=== PATIENT | female | born 1940 | race Caucasian/White ===

== ENCOUNTER 2021-04-25 07:09 | Outpatient (REF) | payer MEDICARE, SELFPAY ==
[2021-04-25 07:39] LABS: Hemoglobin 9.8 g/dl (12.0-16.0); Mean Corpuscular HGB Conc 32.7 g/dl (31.0-35.0); Mean Corpuscular Hemoglobin 29.8 pg (27.0-33.0); Mean Corpuscular Volume 91.2 fL (80-98); Mean Platelet Volume 9.9 fL (9.4-12.3); Platelet Count 468 X10*3/uL (160-400); Red Blood Count 3.29 X10*6/uL (4.20-5.50); Red Cell Distribution Width 13.2 % (11.0-16.0); White Blood Count 4.9 X10*3/uL (4.8-10.8)
[2021-04-25 08:05] LABS: Alanine Aminotransferase 9 U/L (0-31); Albumin Level 3.2 g/dL (3.5-5.0); Alkaline Phosphatase 90 U/L (39-117); Anion Gap 15 (12-20); Aspartate Amino Transferase 11 U/L (5-31); Bilirubin Total 0.5 mg/dL (0.0-1.0); Blood Urea Nitrogen 19 mg/dL (9-16); Carbon Dioxide 23 mmol/L (22-29); Chloride 107 mmol/L (96-108); Estimated Glomerular Filt Rate > 60; Glucose Random 102 mg/dL (60-115); Potassium 3.9 mmol/L (3.3-5.1); Sodium 141 mmol/L (135-145); Total Protein 5.5 g/dL (6.5-8.0)
== END 2021-04-25 07:10 | disposition home or self-care (01) ==
LOC: HO.MMNH1L 07:09
PROVIDERS: Visit Provider Family Medicine
DX: I69.354 Hemiplegia and hemiparesis following cerebral infarction affecting left non-dominant side (principal); I25.10 Atherosclerotic heart disease of native coronary artery without angina pectoris
CPT/HCPCS: 36415; 80053; 85027

== ENCOUNTER 2021-05-01 | Outpatient (REF) | payer MEDICARE, SELFPAY ==
[2021-05-01 07:33] LABS: Hematocrit 29.9 % (37-47); Hemoglobin 9.4 g/dl (12.0-16.0); Mean Corpuscular HGB Conc 31.4 g/dl (31.0-35.0); Mean Corpuscular Hemoglobin 29.3 pg (27.0-33.0); Mean Corpuscular Volume 93.1 fL (80-98); Mean Platelet Volume 10.1 fL (9.4-12.3); Platelet Count 399 X10*3/uL (160-400); Red Blood Count 3.21 X10*6/uL (4.20-5.50); Red Cell Distribution Width 13.9 % (11.0-16.0); White Blood Count 4.9 X10*3/uL (4.8-10.8)
[2021-05-01 07:54] LABS: Alanine Aminotransferase 7 U/L (0-31); Alkaline Phosphatase 87 U/L (39-117); Anion Gap 12 (12-20); Aspartate Amino Transferase 10 U/L (5-31); Bilirubin Total 0.3 mg/dL (0.0-1.0); Blood Urea Nitrogen 14 mg/dL (9-16); Calcium 8.5 mg/dL (8.4-10.2); Carbon Dioxide 24 mmol/L (22-29); Chloride 109 mmol/L (96-108); Estimated Glomerular Filt Rate > 60; Glucose Random 72 mg/dL (60-115); Potassium 4.4 mmol/L (3.3-5.1); Sodium 141 mmol/L (135-145); Total Protein 5.1 g/dL (6.5-8.0)
== END 2021-05-01 00:01 | disposition home or self-care (01) ==
LOC: HO.MMNH1L
PROVIDERS: Visit Provider Family Medicine
DX: I69.354 Hemiplegia and hemiparesis following cerebral infarction affecting left non-dominant side (principal); I25.10 Atherosclerotic heart disease of native coronary artery without angina pectoris
CPT/HCPCS: 36415; 80053; 85027

== ENCOUNTER 2021-05-08 00:51 | Outpatient (REF) | payer MEDICARE, SELFPAY ==
[2021-05-08 06:13] LABS: Hematocrit 30.3 % (37-47); Hemoglobin 9.8 g/dl (12.0-16.0); Mean Corpuscular HGB Conc 32.3 g/dl (31.0-35.0); Mean Corpuscular Hemoglobin 29.8 pg (27.0-33.0); Mean Corpuscular Volume 92.1 fL (80-98); Mean Platelet Volume 10.4 fL (9.4-12.3); Platelet Count 341 X10*3/uL (160-400); Red Blood Count 3.29 X10*6/uL (4.20-5.50); Red Cell Distribution Width 14.7 % (11.0-16.0); White Blood Count 4.4 X10*3/uL (4.8-10.8)
[2021-05-08 06:31] LABS: Alanine Aminotransferase 7 U/L (0-31); Albumin Level 3.3 g/dL (3.5-5.0); Alkaline Phosphatase 80 U/L (39-117); Anion Gap 11 (12-20); Aspartate Amino Transferase 11 U/L (5-31); Bilirubin Total 0.8 mg/dL (0.0-1.0); Blood Urea Nitrogen 14 mg/dL (9-16); Calcium 9.1 mg/dL (8.4-10.2); Carbon Dioxide 28 mmol/L (22-29); Chloride 105 mmol/L (96-108); Estimated Glomerular Filt Rate > 60; Glucose Random 82 mg/dL (60-115); Potassium 4.2 mmol/L (3.3-5.1); Sodium 140 mmol/L (135-145); Total Protein 5.5 g/dL (6.5-8.0)
== END 2021-05-08 00:52 | disposition home or self-care (01) ==
LOC: HO.MMNH1L 00:51
PROVIDERS: Visit Provider Family Medicine
DX: I69.354 Hemiplegia and hemiparesis following cerebral infarction affecting left non-dominant side (principal); I25.10 Atherosclerotic heart disease of native coronary artery without angina pectoris
CPT/HCPCS: 36415; 80053; 85027

== ENCOUNTER 2021-05-15 08:07 | Outpatient (REF) | payer MEDICARE, SELFPAY | END 2021-05-15 08:08 | disposition home or self-care (01) | LOC: HO.MMNH1L 08:07 | PROVIDERS: Visit Provider Family Medicine | DX: Z13.89 Encounter for screening for other disorder (principal) ==

== ENCOUNTER 2021-08-03 16:38 | Outpatient (REF) | payer MEDICARE, SELFPAY ==
[2021-08-03 16:52] LABS: Blood Urea Nitrogen 18 mg/dL (9-16); Estimated Glomerular Filt Rate > 60; Potassium 4.7 mmol/L (3.3-5.1)
== END 2021-08-03 16:39 | disposition home or self-care (01) ==
LOC: HO.HVNA 16:38
PROVIDERS: Visit Provider Internal Medicine
DX: N18.30 Chronic kidney disease, stage 3 unspecified (principal)
CPT/HCPCS: 36415; 82565; 84132; 84520

== ENCOUNTER 2025-04-30 12:23 | Outpatient (AMB) | payer MEDICARE, SELFPAY ==
--- NOTE | 2025-04-30 12:24 | A.OFFVIS_ITS ---
Vital Signs 04/30/25 12:31 Height 5 ft 2 in Weight 105 lb BMI 19.2 BP 156/66 H Blood Pressure Location Rt brachial Position Sitting Respiration 16 Pulse 53 Pulse Source Pulse Oximeter Pulse Oximetry (%) 90 L Oxygen Delivery Method Room Air Intake Visit Reasons: Spondylosis of Lumbrosacral Spine Clinical Laboratory Aide Required: No Accompanied by: Sister Allergies No Known Allergies (No Known Allergies*) Allergy (Verified 04/30/25 12:32) HPI HPI Spondylosis of Lumbrosacral Spine: Details: History of Present Illness The patient is an 84-year-old female presenting with chronic pain. She has a history of spondylosis with radiculopathy, which causes pain radiating down her left leg. The pain has been persistent and is described as nerve pain in the back, with episodes of losing balance. The patient experienced a stroke, which has contributed to her neuropathic pain. She reports that the pain affects her lower back and hip, and she has difficulty with balance and strength. Previous interventions included an injection in the left hip, which provided only three days of relief. The patient has been on various pain medications, including Tylenol, oxycodone, and gabapentin. She reports that Tylenol and oxycodone are not providing adequate relief, and gabapentin was previously discontinued without clear reason. She is currently residing in an assisted living facility and has a sister involved in her care. Pain Description - Pain onset: Chronic, persistent - Quality: Described as nerve pain - Location: Lower back, left leg, and hip - Radiation: Down the left leg - Exacerbating factors: Balance issues, weakness - Relieving factors: Previous hip injection provided temporary relief Physical Exam - Appears afebrile. - Alert and oriented. - Mood and affect appropriate. - Sitting in wheelchair. Pain Management - Affect: Pain impacts balance and strength, causing fear of falling - Analgesia: Current medications include Tylenol, oxycodone, and gabapentin; inadequate relief reported - Adverse Effects: No specific adverse effects reported - Activities of Daily Living: Pain affects balance and strength, impacting daily activities - Aberrant Drug Related Behaviors: None reported [facility] Medical History (Updated 05/04/25 @ 12:04 by Alan Lamar MD) Osteoporosis Major depression, recurrent Hypertension Hyperlipidemia T12 compression fracture COPD (chronic obstructive pulmonary disease) Bilateral carotid artery stenosis Atrial fibrillation Physical Exam Vital Signs: Last Vital Signs Pulse 53 04/30/25 12:31 Resp 16 04/30/25 12:31 BP 156/66 H 04/30/25 12:31 Pulse Ox 90 L 04/30/25 12:31 Oxygen Delivery Method Room Air 04/30/25 12:31 BMI result Body Mass Index 19.2 Assessment & Plan Assessment & Plan (1) 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 - Schedule a follow-up phone consultation in two weeks to assess response to gabapentin. - Consider adjusting gabapentin dosage based on patient's response and side effects. - Advise patient to use plain Tylenol instead of Tylenol PM initially to avoid excessive sedation. Patient was informed and verbally consented to the use of an ambient scribe for clinic note documentation during this visit. Discussion Notes I discussed with the patient the plan to restart gabapentin at 300 mg at bedtime to manage her neuropathic pain. We talked about the importance of monitoring for any side effects and adjusting the dosage as needed. I advised her to use plain Tylenol instead of Tylenol PM initially to avoid excessive sedation. A follow-up phone consultation is scheduled in two weeks to assess her response to the medication. Patient Instructions - Take gabapentin 300 mg at bedtime. - Use plain Tylenol instead of Tylenol PM initially. - Monitor for any side effects and report them during the follow-up call. - Attend the follow-up phone consultation in two weeks. 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
--- OUTSIDE RECORDS SUMMARY | 2025-04-30 12:30 | XMS_ITS | Encounter Summary ---
Author Organization [facility] Address [address] [place] [address] Phone Care Team Providers Care Slasher Operator Name Role Phone Razia Maharaj MD Primary Care Provider [phone] Reason for Visit * Reason Comments Med Refill Encounter Details Date Type Department Care Team (Late st Contact Info) Description 05/13/2023 Refill [facility] [address] [facility] [place] [id number] Vilma Mansfield MD Social History Tobacco Use Types Packs/Day Years Used Date Smoking Tobacco: Never Assessed Alcohol Use Standard Drinks/Week Comments Never 0 (1 standard drink = 0.6 oz pur e alcohol) Comments Unknown Sex and Gender Information Value Date Recorded Sex Assigned at Not on file Legal Sex Female 5:09 PM EST Gender Identity Not on file Sexual Orientation Not on file documented as of this encounter Plan of Treatment Not on file documented as of this encounter Visit Diagnoses Not on filedocumented in this encounter Care Teams Slasher Operator Relationship Specialty Start Date End Date Razia Maharaj MD [address] [place] [address] PCP - General Physical Medicine and Rehabilitation 04/03/21 documented as of this encounter
[2025-04-30 12:31] VITALS: BP 156/66; PULSE 53; RESP 16; O2SAT 90; BMI 19.2
--- OUTSIDE RECORDS SUMMARY | 2025-04-30 12:31 | XMS_ITS ---
Author Organization [facility] Care Team Providers Care Counter Hand Name Role Phone Angie Winters Unavailable Unavailable Andrey Estevez Unavailable Unavailable Joann Husain Unavailable Unavailable Salo Fields Unavailable Unavailable Allergies and adverse reactions No Known Allergies Care Team Name Role Address Phone Organization Dates Andrey Estevez PCP [address] [facility] [address], [place], [address], [facility] (Office): [facility] 07/05/2022 - 07/27/2022 Angie Winters [address], [address], [facility] (Office): [facility] 07/05/2022 - 07/27/2022 Joann Husain [address], [address], [facility] (Office): [facility] 07/05/2022 - 07/27/2022 Salo Fields [address] [address], [facility] (Office): [facility] 07/05/2022 - 07/27/2022 Immunizations Immunization Status Vaccine Details Vaccine Code CodeSystem Zane e Notes SARS-COV-2 (COVID-19) completed SARS-COV-2 (COVID-19) vaccine, mRNA, spike protein, LNP, preservative free, 30 mcg/0.3mL dose Mfg: [employer] Step 2 of Multi-step with next step required 208 CVX created date: 06/30/2022 administered date: 11/15/2020 SARS-COV-2 (COVID-19) completed SARS-COV-2 (COVID-19) vaccine, mRNA, spike protein, LNP, preservative free, 30 mcg/0.3mL dose Mfg: [employer] Step 1 of Multi-step with next step required 208 CVX created date: 06/30/2022 administered date: 10/25/2020 SARS-COV-2 (COVID-19 BOOSTER) completed SARS-COV-2 (COVID-19) vaccine, mRNA, spike protein, LNP, preservative free, 30 mcg/0.3mL dose Mfg: [employer] 208 CVX created date: 06/30/2022 administered date: 05/09/2022 SARS-COV-2 (COVID-19 BOOSTER) completed SARS-COV-2 (COVID-19) vaccine, mRNA, spike protein, LNP, preservative free, 30 mcg/0.3mL dose Mfg: [employer] 208 CVX created date: 06/30/2022 administered date: 08/30/2021 Mental Status Section Date Assessment Total Score Description 07/11/2022 BIMS 14 cognitively int act CAM 0 No delirium ind icated PHQ-9 06 mild depression Problems Problem # Description Date of onset Resolved Date Code CodeSystem Concern Status 1 CEREBRAL INFARCTION, UNSPECIFIED [address] active 2 CHRONIC OBSTRUCTIVE PULMONARY DISEASE, UNSPECIFIED [address] active 3 DYSPHAGIA FOLLOWING CEREBRAL INFARCTION [address] active 4 HISTORY OF FALLING [address] active 5 MUSCLE WEAKNESS (GENERALIZED) [address] active 6 RESPIRATORY FAILURE, UNSPECIFIED WITH HYPOXIA [address] active 7 UNSPECIFIED BACTERIAL PNEUMONIA [address] active 8 CARDIOMYOPATHY, UNSPECIFIED [address] active 9 DIFFICULTY IN WALKING, NOT ELSEWHERE CLASSIFIED [address] active 10 ESSENTIAL (PRIMARY) HYPERTENSION [address] active 11 FRACTURE OF ONE RIB, LEFT SIDE, SUBSEQUENT ENCOUNTER FOR FRACTURE WITH ROUTINE HEALING [address] active 12 HEMIPLEGIA AND HEMIPARESIS FOLLOWING CEREBRAL INFARCTION AFFECTING LEFT NON-DOMINANT SIDE [address] active 13 HYPERLIPIDEMIA, UNSPECIFIED [address] active 14 MAJOR DEPRESSIVE DISORDER, SINGLE EPISODE, UNSPECIFIED [address] active 15 OCCLUSION AND STENOSIS OF BILATERAL CAROTID ARTERIES [address] active 16 OTHER LACK OF COORDINATION [address] active 17 PAIN IN LEFT SHOULDER [address] active 18 PERSONAL HISTORY OF (HEALED) OTHER PATHOLOGICAL FRACTURE [address] active 19 REPEATED FALLS [address] active 20 UNSPECIFIED ATRIAL FIBRILLATION [address] active 21 UNSPECIFIED FRACTURE OF SHAFT OF HUMERUS, LEFT ARM, SUBSEQUENT ENCOUNTER FOR FRACTURE WITH ROUTINE HEALING [address] active 22 UNSTEADINESS ON FEET [address] active Reason for Referral No Reasons for Referral Entered Social History Social History Observation Description Start Date End Date Code Code System Current Smoking Status Tobacco smoking consumption unknown 955044439 SNOMED CT Sex Assigned At Female 1940 [address]-2 [facility] Gender Identity Vital Signs Code Code System Vitals Name Values and Units Timing Information 21689-6 [facility] Pain Level Value=0.0 07/27/2022 9279-1 [facility] Respiratory Rate Value=20.0 Units=/m in 07/27/2022 8462-4 [facility] Blood Pressure-Diastolic Value=69 Un its=mmHg 07/27/2022 8480-6 [facility] Blood Pressure-Systolic Ncbjp=180 Un its=mmHg 07/27/2022 8310-5 [facility] Body Temperature Value=96.9 Units= F 07/27/2022 8867-4 [facility] Heart rate Value=52.0 Units=/min 04/2022 82422-4 [facility] O2 % BldC Oximetry Value=97.0 Units= % 07/27/2022 33983-4 [facility] Weight Qpmbc=891.8 Units=Lbs 8302-2 [facility] Height Value=55.0 Units=Inches 06/28/2022
--- OUTSIDE RECORDS SUMMARY | 2025-04-30 12:31 | XMS_ITS | Patient Health Record ---
Author Organization [facility] mckenna [place] Address [address] [place] [address] Care Team Providers Care Automatic Glove Former Name Role Phone Olivia Chase MD, May Primary Care Provider Taras Donohue Unavailable [phone] Allergies No Known Allergies Reason For Referral No Information Medications Medication SIG (Take, Route, Frequency, Duration) Notes Start Date End Date Status Multivitamin Active Metoprolol Succinate ER 100 MG 1 tablet Orally Once a day Active Melatonin Active Calcium 600 Active AFO-Hinged Spring hinge Wear Da tadeo; Duration: 365 days 02/05/2024 Active buPROPion HCl ER (XL) 150 MG 1 tablet in the morning Orally Once a day Active Aspir-81 Active Alendronate Sodium 70 MG 1 tablet 30 min utes before the first food, beverage or medicine of the day with plain water Orally Active Albuterol Active QUEtiapine Fumarate 25 MG 1 tablet at be dtime Orally Once a day Active Acetaminophen Active Pravastatin Sodium 40 MG 1 tablet Orally Once a day Active Pantoprazole Sodium 40 MG 1 tablet Orall y Once a day Active NIFEdipine ER 60 MG 1 tablet on an empty stomach Orally Once a day Active Social History Tobacco Use: Social History Observation Description Date Details (start date - stop date) Former Smoker NA - NA Tobacco Use/Smoking Question Answer Notes Are you a: former smoker Additional Findings: Tobacco Non-User Current no n-smoker Alcohol Screen Question Answer Notes Did you have a drink contain ing alcohol in the past year? Yes How often did you have a dri nk containing alcohol in the past year? Monthly or less (1 point) Points 1 Interpretation Negative Tobacco use other than smoking: Question Answer Notes Are you an other tobacco user? No Problems Problem Type SNOMED Code ICD Code Onset Dates Problem Status W/U Status Risk Notes Problem Unsteady gait (31307831) Unsteady gait (R26.81) Active confirmed Problem Left foot drop (282191212660330) Left foot drop (M21.372) Active confirmed Problem Cerebrovascular accident (145328888) Cerebrovascular accident (CVA), unspecified mechanism (I63.9) Active confirmed Plan Of Treatment No Information Insurance Providers Payer Name Payer Address Payer Phone Subscriber Number Group Number Insured Name Patient Relationship to Insured Coverage Start Date Coverage End Date [employer] [place] [employer]age [facility] [address] [place] [address] [id number] Pilar Chandler Self - patient is the insured Medical (General) History Medical History History ICD Code Anxiety Back,Hip,and Knee pain Broken bones Cataracts High blood pressure Osteoporosis Paralysis Stroke Measles Chicken pox Surgical History Surgery Date(Month/Year) hysterectomy 1966 carpal tunnel surgery 1984 bunionectomy 1974
--- OUTSIDE RECORDS SUMMARY | 2025-04-30 12:31 | XMS_ITS ---
Author Organization [facility] Care Team Providers Care Intelligence Chief Name Role Phone Flakito Dailey Unavailable Unavailable Eleanor Umana Unavailable Unavailable Allergies and adverse reactions No Known Allergies Care Team Name Role Address Phone Organization Dates Flakito Dailey PCP [address] [facility] [address], [place], [address], [facility] (Office): : [facility] 04/22/2021 - 05/10/2021 Eleanor Umana [address], [address], [facility] (Office): [facility] 04/22/2021 - 05/10/2021 Immunizations Immunization Status Vaccine Details Vaccine Code CodeSystem Date Notes Influenza completed Influenza, split virus, trivalent, injectable, contains preservative 141 CVX created date: 04/22/2021 consent date: 05/01/2021 administere d date: 08/11/2020 TB 2 Step Mantoux Skin Test new tuberculin skin test; unspecified formulation 98 CVX created date: 05/02/2021 consent date: 05/02/2021 TB 2 Step Mantoux Skin Test completed tuberculin skin test; unspecified formulation lotNumber: [id number] expiry: 12/18/2021 Mfg: [facility] pharmaceutical Given 0.1 ml Left Forearm intradermally Step 1 of Multi-step with next step required 98 CVX created date: 04/22/2021 consent date: 04/22/2021 administere d date: 04/22/2021 PCV13 (Pneumococcal Conjugate)Vaccine cancelled pneumococcal conjugate vaccine, 13 valent 133 CVX created date: 04/22/2021 consent date: 05/01/2021 Mental Status Section Date Assessment Total Score Description 05/10/2021 BIMS 06 severe cognitiv e impairment CAM 0 No delirium ind icated PHQ-9 02 minimal depress ion 05/04/2021 BIMS 06 severe cognitiv e impairment CAM 0 No delirium ind icated PHQ-9 02 minimal depress ion Problems Problem # Description Date of onset Resolved Date Code CodeSystem Concern Status 1 PERSONAL HISTORY OF (HEALED) TRAUMATIC FRACTURE 04/23/[address] active 2 ADULT FAILURE TO THRIVE 04/21/[address] active 3 ATHEROSCLEROTIC HEART DISEASE OF [place] CORONARY ARTERY WITHOUT ANGINA PECTORIS 04/21/[address] active 4 BODY MASS INDEX [BMI] 19.9 OR LESS, ADULT 04/21/[address] active 5 CHRONIC ATRIAL FIBRILLATION, UNSPECIFIED 04/21/[address] active 6 CHRONIC KIDNEY DISEASE, UNSPECIFIED 04/21/[address] active 7 CHRONIC OBSTRUCTIVE PULMONARY DISEASE, UNSPECIFIED 04/21/[address] active 8 DIABETES MELLITUS DUE TO UNDERLYING CONDITION WITH DIABETIC NEUROPATHY, UNSPECIFIED 04/21/[address] active 9 ESSENTIAL (PRIMARY) HYPERTENSION 04/21/[address] active 10 HEMIPLEGIA AND HEMIPARESIS FOLLOWING CEREBRAL INFARCTION AFFECTING LEFT NON-DOMINANT SIDE 04/21/[address] active 11 HYPERLIPIDEMIA, UNSPECIFIED 04/21/[address] active 12 MAJOR DEPRESSIVE DISORDER, RECURRENT, UNSPECIFIED 04/21/[address] active 13 UNSPECIFIED DEMENTIA, UNSPECIFIED SEVERITY, WITHOUT BEHAVIORAL DISTURBANCE, PSYCHOTIC DISTURBANCE, MOOD DISTURBANCE, AND ANXIETY 04/21/[address] active Reason for Referral No Reasons for Referral Entered Social History Social History Observation Description Start Date End Date Code Code System Current Smoking Status Tobacco smoking consumption unknown 359319414 SNOMED CT Sex Assigned At Female 1940 [address]-8 [facility] Gender Identity Vital Signs Code Code System Vitals Name Values and Units Timing Information 05054-1 [facility] Pain Level Value=0.0 05/10/2021 9279-1 [facility] Respiratory Rate Value=18.0 Units=/m in 05/10/2021 8310-5 [facility] Body Temperature Value=97.5 Units= F 05/10/2021 62114-5 [facility] O2 % BldC Oximetry Value=95.0 Units= % 05/10/2021 8462-4 [facility] Blood Pressure-Diastolic Value=75 Un its=mmHg 05/09/2021 8480-6 [facility] Blood Pressure-Systolic Fnvum=355 Un its=mmHg 05/09/2021 8867-4 [facility] Heart rate Value=79.0 Units=/min 54204-7 [facility] Weight Value=91.4 Units=Lbs 04/20 2339-0 [facility] Blood Sugar Mvvdn=309.0 Units=mg/dL 05/04/2021 8302-2 [facility] Height Value=64.0 Units=Inches 04/22/2021
--- OUTSIDE RECORDS SUMMARY | 2025-04-30 12:31 | XMS_ITS ---
Author Organization [facility] Care Team Providers Care Technical Associate Name Role Phone Tata Sen Unavailable Unavailable Razia Maharaj Unavailable Unavailable Aleshia Power Unavailable Unavailable Kushal RECREATION FACILITIES SUPERVISOR, Liliya Schmitt Unavailable Unavailable Guillermina Germain Unavailable Unavailable MainSerenity kaufman Unavailable Unavailable Allergies and adverse reactions No Known Allergies Care Team Name Role Address Phone Organization Dates Razia Maharaj PCP [address] [facility] [address] [address], [facility] (Office): : [facility] 03/23/2021 - 04/19/2021 [place], [address], [facility] (Office): : [facility] 03/23/2021 - 04/19/2021 Aleshia Power [address] [facility] [address], [place], [address], [facility] (Office): : [phone] [facility] 03/23/2021 - 04/19/2021 Liliya Fatima NP [address] [address], [facility] (Office): [facility] 03/23/2021 - 04/19/2021 Guillermina Germain [address] [facility] [address], [place], [address], [place] (Office): : [facility] 03/23/2021 - 04/19/2021 Serenity Houser [address] [facility] [address] [place], [address], [place] (Office): : [facility] 03/23/2021 - 04/19/2021 Mental Status Section Date Assessment Total Score Description 04/19/2021 CAM 0 No delirium ind icated 03/28/2021 BIMS 11 moderate cognit rich impairment CAM 0 No delirium ind icated PHQ-9 00 Problems Problem # Description Date of onset Resolved Date Code CodeSystem Concern Status 1 UNSPECIFIED ATRIAL FIBRILLATION 04/07/[address] active 2 ATHEROSCLEROTIC HEART DISEASE OF [place] CORONARY ARTERY WITHOUT ANGINA PECTORIS 03/23/[address] active 3 CHRONIC KIDNEY DISEASE, UNSPECIFIED 03/23/[address] active 4 CHRONIC OBSTRUCTIVE PULMONARY DISEASE, UNSPECIFIED 03/23/[address] active 5 ESSENTIAL (PRIMARY) HYPERTENSION 03/23/[address] active 6 FRACTURE OF ONE RIB, UNSPECIFIED SIDE, SUBSEQUENT ENCOUNTER FOR FRACTURE WITH ROUTINE HEALING 03/23/[address] active 7 HEMIPLEGIA AND HEMIPARESIS FOLLOWING CEREBRAL INFARCTION AFFECTING LEFT NON-DOMINANT SIDE 03/23/[address] active 8 HEMIPLEGIA AND HEMIPARESIS FOLLOWING CEREBRAL INFARCTION AFFECTING UNSPECIFIED SIDE 03/23/[address] active 9 HYPERLIPIDEMIA, UNSPECIFIED 03/23/[address] active 10 MAJOR DEPRESSIVE DISORDER, RECURRENT, UNSPECIFIED 03/23/[address] active 11 PAIN IN UNSPECIFIED HIP 03/23/[address] active 12 PAIN IN UNSPECIFIED SHOULDER 03/23/[address] active 13 PERSONAL HISTORY OF TRANSIENT ISCHEMIC ATTACK (TIA), AND CEREBRAL INFARCTION WITHOUT RESIDUAL DEFICITS 03/23/[address] active 14 REPEATED FALLS 03/23/[address] active 15 UNSPECIFIED SEQUELAE OF CEREBRAL INFARCTION 03/23/[address] active 16 UNSTEADINESS ON FEET 03/23/[address] active 17 WEAKNESS 03/23/[address] active 18 WEDGE COMPRESSION FRACTURE OF T11-T12 VERTEBRA, SUBSEQUENT ENCOUNTER FOR FRACTURE WITH ROUTINE HEALING 03/23/[address] active Reason for Referral No Reasons for Referral Entered Social History Social History Observation Description Start Date End Date Code Code System Current Smoking Status Tobacco smoking consumption unknown 448519068 SNOMED CT Sex Assigned At Female 1940 [address]-[address] [facility] Gender Identity Vital Signs Code Code System Vitals Name Values and Units Timing Information 8462-[address] [facility] Blood Pressure-Diastolic Value=57 Un its=mmHg 04/19/2021 8480-[address] [facility] Blood Pressure-Systolic Ftavi=151 Un its=mmHg 04/19/2021 8867-[address] [facility] Heart rate Value=98.0 Units=/min 81959-[address] [facility] Pain Level Value=7.0 04/19/2021 9279-[address] [facility] Respiratory Rate Value=18.0 Units=/m in 04/19/2021 8310-[address] [facility] Body Temperature Value=98.0 Units= F 04/19/2021 27037-[address] [facility] O2 % BldC Oximetry Value=93.0 Units= % 04/19/2021
--- OUTSIDE RECORDS SUMMARY | 2025-04-30 12:31 | XMS_ITS | Clinical Summary ---
Author Organization [facility] Address [address] [place] [address] Phone Care Team Providers Care Patcher Name Role Phone Preet Rivera MD Primary Care Provider [phone] Allergies No known active allergies Medications lisinopriL (PRINIVIL,ZESTRI L) 20 mg tablet Take 1 Tablet by mouth daily. Active NIFEdipine CC (ADALAT CC) 60 mg 24 hr tablet Take 1 Tablet by mouth daily. Active QUEtiapine (SEROquel) 25 mg tablet Take 1 Tablet by mouth 2 times daily. Active traMADoL (ULTRAM) 50 mg tablet Take 1 Tablet by mouth every 6 hours as needed. Active metoprolol succinate (TOPROL-XL) 50 mg 24 hr tablet Take 50 mg by mouth daily. Active pantoprazole (PROTONIX) 40 mg EC tablet Take 40 mg by mouth daily. Active cyanocobalamin (VITAMIN B-12) 1,000 mcg/mL oral liquid Inject as directed. Active docusate sodium (COLACE) 100 mg capsule Take 100 mg by mouth 2 times daily. Active HYDROmorphone (DILAUDID) 2 mg tablet Take 2 mg by mouth every 3 hours as needed. Active guaiFENesin (ROBITUSSIN) 100 mg/5 mL liquid Take 10 mL by mouth 3 times daily as needed. Active calcium carbonate-vitami n D3 600 mg-12.5 mcg (500 unit) capsule Take by mouth. Active FLUTICASONE PROPIONATE NASL Inhale into the lungs. Active POLYETHYLENE GLYCOL 3350 ORAL Take by mouth. Active albuterol HFA (PROAIR HFA ; PROVENTIL HFA ; VENTOLIN HFA) 90 mcg/actuation inhaler Inhale 2 Puffs into the lungs every 4 hours as needed. Active aspirin ([place]) 81 mg capsule Take by mouth. Active apixaban (ELIQUIS) 5 mg tablet Take by mouth. Active gabapentin (NEURONTIN) 300 mg capsule Take 300 mg by mouth 2 times daily. Active melatonin 3 mg tablet Take 6 mg by mouth. Active multivitamin,the r and minerals (VITAMINS AND MINERALS ORAL) Take by mouth. Active pravastatin (PRAVACHOL) 40 mg tablet Take 40 mg by mouth daily. Active acetaminophen (TYLENOL) 500 mg tablet Take 500 mg by mouth every 6 hours as needed. Active buPROPion XL (WELLBUTRIN XL) 150 mg 24 hr tablet Take 150 mg by mouth every morning. Active ZINC SULFATE ORAL Take by mouth. 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 This has been seen on imaging since at least September 2020 has not significantly increased in size over this time. Last echocardiogram that I am able to see was also September 2020 that did not show any evidence of right heart compression from the cyst or right sided heart failure. Given the patient's frailty and significant other comorbidities surgical resection of the cyst is not indicated at time. The main risk from a pericardial cyst is compression of the heart prompting right-sided heart failure and/or atelectasis of the surrounding lung causing shortness of breath, although this does not appear to be a problem with the patient. We will continue to follow the cyst with a chest CT in 2 years time. Should this ever grows in size or cause a problem in her cardiac status we can certainly reconsider surgical resection, although I do not think the patient would be a good surgical candidate now or in the future. Surgical History Surgery Date Site/Laterality Comments OTHER SURGICAL HISTORY PROCEDURE: [place] ESOPHAGOSCOPY DILATE ESOPHAGUS BALLOON 30 MM Medical History Medical History Date Comments Essential hypertension DX:Essent ial hypertension Hyperlipidemia DX:Hyperlipidemi a Stroke (CMS/HCC V24, CMS/HCC V28) DX:Stroke (HCC) Afib (CMS/HCC V24, CMS/HCC V28) DX:Afib (HCC) Depressive disorder DX:Depressiv e disorder DVT (deep venous thrombosis) (CMS/HCC V24, CMS/HCC V28) DX:DVT (deep venous thrombos is) ([facility]) Dysphagia DX:Dysphagia Status post fall DX:Status post fall Hypokalemia DX:Hypokalemia Aspiration pneumonia (CMS/HC C V24, CMS/[facility] V28) DX:Aspiration pneumonia ([facility] ) Social History Tobacco Use Types Packs/Day Years Used Date Smoking Tobacco: Former Smokeless Tobacco: Never Alcohol Use Standard Drinks/Week Comments Not Currently 0 (1 standard drink = 0.6 oz pur e alcohol) Comments Unknown Sex and Gender Information Value Date Recorded Sex Assigned at Not on file Legal Sex Female 4:14 AM EST Gender Identity Not on file Sexual Orientation Not on file Obstetrics History Last Filed Vital Signs Vital Sign Reading Time Taken Comments Blood Pressure 142/60 01/04/2023 2:06 PM EDT Sit ting R Arm Pulse 64 01/04/2023 2:06 PM EDT Temperature - - Respiratory Rate - - Oxygen Saturation - - Inhaled Oxygen Concentration - - Weight 48.5 kg (107 lb) 01/04/2023 2:06 PM EDT Height 154.9 cm (5' 1 ) 01/04/2023 2:06 PM EDT Body Mass Index 20.22 01/04/2023 2:06 PM EDT Plan of Treatment Health Maintenance Due Date Last Done Comments DTaP,Tdap,and Td Vaccines (1 - Tdap) 1961 Pneumococcal Vaccine: 50+ Ye ars (1 of 1 - PCV) 1992 Zoster Vaccines (1 of 2) 1992 RSV Immunization Adult Patie nts (1 - 1-dose 75+ series) 2017 Depression Screening 09/23/2022 Falls Risk Assessment 09/23/2022 Osteoporosis Screening (Bone Density Screening) 09/23/2022 Social Influencers of Health Screening 09/23/2022 COVID-19 Vaccine ( - 2023-2 5 season) 2024 Influenza Vaccine (#1) 2025 HIB Vaccines Aged Out No longer eligi ble based on patient's age to complete this topic HPV Vaccines Aged Out No longer eligi ble based on patient's age to complete this topic Hepatitis A Vaccines Aged Out No long er eligible based on patient's age to complete this topic Hepatitis B Vaccines Aged Out No long er eligible based on patient's age to complete this topic IPV Vaccines Aged Out No longer eligi ble based on patient's age to complete this topic MMR Vaccines Aged Out No longer eligi ble based on patient's age to complete this topic Meningococcal ACWY Vaccine Aged Out N o longer eligible based on patient's age to complete this topic Meningococcal B Vaccine Aged Out No l onger eligible based on patient's age to complete this topic RSV Immunization Patients Un kelly 20 months Aged Out No longer eligible b ased on patient's age to complete this topic Varicella Vaccines Aged Out No longer eligible based on patient's age to complete this topic Insurance [address] [address] Advance Directives Documents on File Type Date Recorded Patient Retail Field Supervisor Expl anation Health Care Decision (hx) 08/14/2022 AD MONTEJO DIRECTIVE Health Care Decision (hx) 08/14/2022 AD MONTEJO DIRECTIVE Health Care Decision (hx) 08/08/2022 AD MONTEJO DIRECTIVE Health Care Decision (hx) 08/08/2022 AD MONTEJO DIRECTIVE Health Care Decision (hx) 05/05/2022 AD MONTEJO DIRECTIVE Health Care Decision (hx) 03/23/2021 AD MONTEJO DIRECTIVE Health Care Decision (hx) 02/02/2021 AD MONTEJO DIRECTIVE Health Care Decision (hx) 01/02/2021 AD MONTEJO DIRECTIVE Health Care Decision (hx) 01/02/2021 AD MONTEJO DIRECTIVE Health Care Decision (hx) 01/02/2021 AD MONTEJO DIRECTIVE Health Care Decision (hx) 01/02/2021 AD MONTEJO DIRECTIVE Health Care Decision (hx) 01/02/2021 AD MONTEJO DIRECTIVE Health Care Decision (hx) 01/02/2021 AD MONTEJO DIRECTIVE Health Care Decision (hx) 01/02/2021 AD MONTEJO DIRECTIVE Health Care Decision (hx) 01/02/2021 AD MONTEJO DIRECTIVE Health Care Decision (hx) 01/02/2021 AD MONTEJO DIRECTIVE Health Care Decision (hx) 01/02/2021 AD MONTEJO DIRECTIVE Health Care Decision (hx) 01/02/2021 AD MONTEJO DIRECTIVE Health Care Decision (hx) 01/02/2021 AD MONTEJO DIRECTIVE Health Care Decision (hx) 01/02/2021 AD MONTEJO DIRECTIVE Health Care Decision (hx) 01/02/2021 AD MONTEJO DIRECTIVE Health Care Decision (hx) 01/02/2021 AD MONTEJO DIRECTIVE Health Care Decision (hx) 01/02/2021 AD MONTEJO DIRECTIVE Health Care Decision (hx) 01/02/2021 AD MONTEJO DIRECTIVE Health Care Decision (hx) 01/02/2021 AD MONTEJO DIRECTIVE Health Care Decision (hx) 01/02/2021 AD MONTEJO DIRECTIVE Health Care Decision (hx) 01/02/2021 AD MONTEJO DIRECTIVE Health Care Decision (hx) 01/02/2021 AD MONTEJO DIRECTIVE Health Care Decision (hx) 10/05/2020 AD MONTEJO DIRECTIVE Health Care Decision (hx) 10/05/2020 AD MONTEJO DIRECTIVE Health Care Decision (hx) 10/05/2020 AD MONTEJO DIRECTIVE Health Care Decision (hx) 10/05/2020 AD MONTEJO DIRECTIVE Health Care Decision (hx) 10/05/2020 AD MONTEJO DIRECTIVE Health Care Decision (hx) 10/05/2020 AD MONTEJO DIRECTIVE Health Care Decision (hx) 10/05/2020 AD MONTEJO DIRECTIVE Health Care Decision (hx) 10/05/2020 AD MONTEJO DIRECTIVE Health Care Decision (hx) 10/05/2020 AD MONTEJO DIRECTIVE Health Care Decision (hx) 10/05/2020 AD MONTEJO DIRECTIVE Health Care Decision (hx) 10/05/2020 AD MONTEJO DIRECTIVE Health Care Decision (hx) 10/05/2020 AD MONTEJO DIRECTIVE Health Care Decision (hx) 10/05/2020 AD MONTEJO DIRECTIVE Health Care Decision (hx) 10/05/2020 AD MONTEJO DIRECTIVE Health Care Decision (hx) 10/05/2020 AD MONTEJO DIRECTIVE Health Care Decision (hx) 10/05/2020 AD MONTEJO DIRECTIVE Health Care Decision (hx) 10/05/2020 AD MONTEJO DIRECTIVE Health Care Decision (hx) 10/05/2020 AD MONTEJO DIRECTIVE Health Care Decision (hx) 10/05/2020 AD MONTEJO DIRECTIVE Health Care Decision (hx) 10/05/2020 AD MONTEJO DIRECTIVE Health Care Decision (hx) 10/05/2020 AD MONTEJO DIRECTIVE Health Care Decision (hx) 10/05/2020 AD MONTEJO DIRECTIVE Care Teams Patcher Relationship Specialty Start Date End Date Preet Rivera MD [address] [place] [id number] PCP - General 03/19/14
--- OUTSIDE RECORDS SUMMARY | 2025-04-30 12:31 | XMS_ITS | Data Portability ---
Author Organization [place] [facility] Address [address] [address] [place] [address] Care Team Providers Care Dehairer Name Role Phone RAZ REID Primary Care Provider Assessment Encounter Date Assessment Date Assessment LastModified by Organization Details LastModified Time 05/18/2021 05/18/2021 Overview/History : This is a 80-year-old female whose past medical history significant for depression, high cholesterol, hypertension, CVA, atrial fibrillation, chronic pain, cognitive deficit status post CVA, and dysphagia, insomnia, attention and concentration deficits. She calls with concerns for left back, site, hip pain. She is a poor historian and is unable to give any aggravating or relieving factors. She states pain is constant, stabbing 8/10. She is requesting something stronger than tramadol as she has been taking tramadol since yesterday with no relief. She denies any recent falls or known injuries. She also admits to mild STIR patient for the past 4 days however denies any abdominal pain, nausea, vomiting, diarrhea. Exam: A&O x2-answering simple questions appropriately. Follows commands. No acute distress noted. Vital signs stable, afebrile Apical-irregular, strong Lung sounds clear throughout, equal More normal mucous membranes ABD-soft, nondistended with hyperactive bowel sounds noted throughout. Mild left upper quadrant tenderness noted on initial exam however repeat exam revealed no tenderness. -no CVA or suprapubic tenderness noted Musculoskeletal-mo ving all extremities independently. Able to transfer from laying position on couch to wheelchair without any difficulty. Able to wheel herself throughout the department without any difficulty. Full active range of motion noted to left hip with flexion, extension and rotation. DDx considered, but not limited to: Lower back stain, Hip pain, Arthritis, Constipation, Pancreatitis, Diverticulitis, Renal colic, SBO - all possible given vague subjective complaints of left side, back, hip pain. LUQ tenderness noted upon initial exam however repeat exam revealed no tenderness. Full ROM to left hip. C/O constipation x 4 days, unable to answer if taking stool softeners currently. Denies any abd pain, n/v/d. Work up/Results: Attempted to contact [facility] nurse - unavailable - message left Contacted PCP - PCP has not seen patient in office in quite some time, last visit was telehealth in December 2020. PCP feels that patient may require SNF at this time given numerous ER visits recently. PCP aware of ER recommendations made by [facility] nurse and KAREEM. Recommended ER as patient repeatedly asking for pain medication stronger than Tramadol and patient unable to give more specific information in regards to pain location and factors - patient refusing ER. Patient aware to call PCP for visit and if symptoms persist Plan/Discussion: Strict ER precautions discussed - patient verbalized understanding [facility] nurse and PCP aware of visit findings and concerns. Drink plenty of fluids Continue taking Tramdol and tylenol as needed for pain [email or web address] Not available 05/18/2021 12:22:44 09/01/2021 09/01/2021 Overview/History : 80 y/o F with PMH of HTN, HLD, Depression, CVA with left sided deficit, Atrial Fibrillation, Chronic Pain, Cognitive deficit s/p CVA, Dysphagia, Insomnia, Attention and concentration Deficit, known to but new to provider, is seeking further evaluation of right flank pain/right parathoracic back pain x 2 days. The patient reports that the pain is a 10/10. Patient has taken Tramadol 50 mg once daily for pain which has provided her with relief, but the patient returns after 1-2 hours. The patient reports chronic urinary frequency. Patient admits to some pain with a deep breath in intermittently. The patient also reports that she experienced a fall out of her car approximately 6 days ago where she fell on her right side, but had no pain in her chest or back until 2 days ago. Patient denies any chest pain, shortness of breath, fevers, chills, cough, nausea, vomiting, diarrhea, abdominal pain, leg swelling, dysuria, or hematuria. Also denies any head trauma or LOC. Exam: AAOx3 elderly female, non-toxic appearing, in no acute distress, ambulatory with mild limp to left side which is baseline Head: NC/AT (+) moist mucous membranes Heart: RRR with no murmurs, rubs or gallops Lungs: CTABL with no ronchi, wheezes or rales present Abd: Soft, non-tender, non-distended Back: (+) right mild flank tenderness/right parathoracic tenderness, (+) pain is worse with movement Extremities: Freely moving with no edema, 2+ distal pulses, 3/5 strength on left side both upper and lower extremity which is her baseline. DDx considered, but not limited to: Pyelonephritis versus Kidney Stone versus Rib Fracture versus Pneumothorax versus Thoracic Back Strain versus Pneumonia Work up/Results: Patient is non-toxic appearing in no acute distress. Patient is afebrile to 98. HR is 51. BP is 134/80. RR is 16. O2sat is 96% on RA. Patient has some mild right flank tenderness/right parathoracic tenderness where pain is illicited with movement. Patient's lungs are CTABL. Patient has chronic urinary frequency. Will assess with send out CBC, POC chem 8, POC urine dipstick, likely urine culture, as well as retroperitoneal US of right flank and right rib series xray with PA chest view. POC Chem 8 shows no significant abnormalities. glu - 106 BUN - 19 crea - 0.6 Na - 141 K - 4.5 cL - 104 TCO2 - 24 angap - 18 ica - 1.16 HCT - 41 Hb - 13.9 POC urine dipstick is significant for (++) protein and (+) 5-18 faby/uL of blood CBC and urine culture ordered and sent out to [facility]. Retroperitoneal US ordered to r/o kidney stone or pyelonephritis. Xray of the right rib series and PA chest xray to r/o a rib fracture or pneumothorax Plan/Discussion: Lengthy discussion was had with patient regarding her symptoms. Patient states that tramadol has assisted with her pain. has evaluated patient for back pain in the past. Patient's symptoms appear muscular in nature and could likely be due to her fall 6 days ago, although patient is unable to specifically describe the fall. Patient has chronic urinary frequency with minimal microscopic hematuria on her urine dipstick. Kidney stone needs to be ruled out at this point and will r/o retroperitoneal US of the right side. has low suspicion of pyelonephritis as urine dipstick has no leukocytes and patient has no fevers, nausea or vomiting. Pneumothorax/rib fracture will be ruled out as well with xray of right rib series and chest xray, but lungs are clear to auscultation. Patient's POC Chem 8 shows no significant abnormalities. Kidney function is normal. POC urine dipstick shows (++) protein and 5-10 faby/uL of blood. DH will be in contact with CBC, urine culture and imaging results as soon as they are received. 650 mg of Tylenol administered on scene. Rx: Tylenol and Lidocaine 4% topical patches electronically prescribed to pharmacy. Attempted to contact patient's daughter on scene with no response. LVM to call back. Attempted to contact patient's PCP but was on hold for 20 minutes and was not able to leave a message. Advised patient to monitor for worsening pain in back, fevers, chills, nausea, vomiting, abdominal pain, chest pain, difficulty breathing, weakness, fatigue, lethargy, and if any of these occur then to call 911 and go to the ER or call DH back for re-evaluation. Patient verbalized her understanding of the diagnosis and need for follow up with PCP, as well as ER/DH return precautions. In order to obtain further information and compare any laboratory results/values, I have accessed old patient records. This information was pertinent in my medical decision making today. Proper Personal Protective Equipment (PPE), including gloves, eye protection and masks were donned and doffed appropriately and all equipment cleaned using approved technique with germicidal disposable wipes prior to and after care of this patient according to [facility]'s infection prevention protocols. Not available 09/01/2021 16:07:33 Plan of Treatment Reminders Order Date Submit Date Provider Last Modified By Organization Details Last Modified Time Details Appointments None recorded. Lab urinalysis , dipstick [email or web address] [facility], [address] [place] [address], [phone], 14:46:41 culture, urine 2020 021 [email or web address] [facility] (Centralized Electronic Ordering - All Locations), Patient Can Go To The Location Of Their Choice, [id number] 14:20:21 BMP + ionized calcium, serum or plasma 2020 LAURA [facility] (Centralized Electronic Ordering - All Locations), Patient Can Go To The Location Of Their Choice, [id number] 15:17:18 CBC w/ auto diff 2020 [email or web address] [facility] (Centralized Electronic Ordering - All Locations), Patient Can Go To The Location Of Their Choice, [id number] 09:22:57 Referral None recorded. Procedures None recorded. Surgeries None recorded. Imaging US, retroperit oneum, limited - right sided flank pain x 2 days, r/o kidney pathology 2020 [place] [facility] ([facility] [employer] [address] [facility], [place], [address], 19:44:34 XR, ribs, unilateral , w/ PA chest - right sided mid back pain [email or web address] Corporate Office ([facility] [address] [facility], [place], [address], 17:31:25 Medication Orders lidocaine 4 % topical patch 2020 [facility], [address] [place] [address], [place], [address], 15:10:29 Tylenol 325 mg tablet 2020 [facility], [address] [place] [address], [facility], [place], [address], 15:10:29 acetaminop hen 325 mg tablet 2020 [email or web address] [facility], [address] [place] [address], [place], [place], [address], 11/12/202 1 15:51:52 Patient TargetsNo targets recorded. Patient Instructions Encounter Date Encounter Id Patient Instructions Last Modified By Organization Details Last Modified Time 05/18/2021 [id number] Back Pain - Discharge Instructions Basic Information: Back pain is a common problem, and has many different causes. Most back pain will improve within 2 weeks of onset. Common causes include lifting, twisting movements, overuse, unusual movements, stress, prolonged sitting, poor posture, being overweight and less commonly structural issues such as disc problems(sciatica) or fractures. X-rays and MRI s are rarely indicated unless there has been significant trauma, if you are having certain abnormal neurologic abnormalities, or if you have certain underlying medical conditions that can cause spinal problems. Instructions: Avoid heavy lifting, bending ,twisting or prolonged sitting. Be as active as you can comfortably be, walking often makes back pain feel better. Be sure to change position at least every 2 hours to avoid stiffening up. BED REST IS NOT RECOMMENDED FOR BACK PAIN AND WILL MAKE YOU FEEL WORSE! Ice for 15 minutes every 2 hours and after 48 hours you may alternate with moist heat for 15 minutes. DO NOT FALL ASLEEP ON THE HEATING PAD, this will cause the area to swell and hurt more! When getting out of bed, roll to your side, and dangle your legs over the edge of the bed while pushing up with your hand and elbow to a seated position. Place a pillow between your knees while lying on your side, and under your legs when lying on your back to remove stress from the spine. Practice good posture as much as you are able, shoulders back, head up, abdomen pulled in. Gentle stretching, lie on your back and gently hug your knees. When you are feeling better there are many exercises that can help you treat and prevent low back pain, check with your Provider. If you are having pain/numbness going down your legs the [place] exercises are designed to relieve this pain, you can find demonstrations on [employer] Weight loss will help to relieve stress on your back. Smoking can make back pain worse, try to limit or quit smoking, check with your provider about methods to help stop smoking. Medications: Based on your history and examination your provider will design a medication regimen specifically for your condition, this may include some of the following medications. Acetaminophen/Tyle nol: if you do not have any liver issues. Non-steroidal anti inflammatories/NSA IDS: These category includes ibuprofen (Motrin. Advil) and Naproxen (Aleve/Naprsoyn) and other medications. Anti-inflammatorie s are powerful pain relievers and the first line treatment for back pain. NSAID s should be taken with food. People with kidney disease, hypertension or on blood thinners should not take these medications. Other medications may be prescribed, if they contain muscle relaxants or narcotic pain relievers DO NOT DRINK ALCOHOL, DRIVE OR OPERATE HEAVY MACHINERY WHILE TAKING THESE MEDICATIONS! Follow Up: You will need to follow up with your PCP for reevaluation within a few days If your back pain persists for more than 2 months or your condition deteriorates you may require further evaluation and testing. If you experience worsening and persistent numbness/weakness/ tingling, have numbness of your genitals, inability to urinate or losing urine, severe pain, fever more than 101.5, or are worse go to the ER for further evaluation. If you have additional concerns or develop a change in your condition between 8am-10pm, please call [facility] at [phone] to help navigate your care. [email or web address] Not available 05/18/2021 11:42:13 09/01/2021 [id number] Thank you for yo ur visit with [facility] today. We cannot always find the exact cause of your symptoms during your initial visit. Please follow up with your primary care provider or specialist within 24-48 hours to be rechecked or seek medical attention if your symptoms do not go away or get worse. If you develop any new or worsening symptoms and need after hours care, please go to nearest ER and/or call 911. If you have additional concerns or develop a change in your condition between 8am-10pm, please call [facility] at [phone] to help navigate your care. Not available 09/01/2021 14:46:32 Reason for Referral None Reported. Results Created Date Observation Date Name Description Value Unit Range Abnormal Flag Note LastModifiedBy Organization Detail LastModifiedTime 09/01/20 21 09/01/2021 COMPL ETE CBC WITH DIFF WBC 5.6 K/mm3 (4.0-1 1.0) Not Available [facility] (Centralized Electronic Ordering - All Locations) Patient Can Go To The Location Of Their Choice, [id number] 09/25/2021 15:09:46 09/01/20 21 09/01/2021 COMPL ETE CBC WITH DIFF RBC 4.10 M/mm3 (4.20- 5.40) low Not Available [facility] (Centralized Electronic Ordering - All Locations) Patient Can Go To The Location Of Their Choice, [id number] 09/25/2021 15:09:46 09/01/2009/01/2021 COMPL ETE CBC WITH DIFF HGB 12.4 gm/dL (11.7- 15.5) Not Available [facility] (Centralized Electronic Ordering - All Locations) Patient Can Go To The Location Of Their Choice, 09/25/2021 15:09:46 09/01/2009/01/2021 COMPL ETE CBC WITH DIFF HCT 39.7 % (35.7- 45.8) Not Available [facility] (Centralized Electronic Ordering - All Locations) Patient Can Go To The Location Of Their Choice, 09/25/2021 15:09:46 09/01/2009/01/2021 COMPL ETE CBC WITH DIFF MCV 96.8 fL (80.0- 100.0) Not Available [facility] (Centralized Electronic Ordering - All Locations) Patient Can Go To The Location Of Their Choice, 09/25/2021 15:09:46 09/01/2009/01/2021 COMPL ETE CBC WITH DIFF MCH 30.2 pg (27.0- 34.0) Not Available [facility] (Centralized Electronic Ordering - All Locations) Patient Can Go To The Location Of Their Choice, 09/25/2021 15:09:46 09/01/2009/01/2021 COMPL ETE CBC WITH DIFF MCHC 31.2 g/dL (33.0- 37.0) low Not Available [facility] (Centralized Electronic Ordering - All Locations) Patient Can Go To The Location Of Their Choice, 09/25/2021 15:09:46 09/01/2009/01/2021 COMPL ETE CBC WITH DIFF plt 342 K/mm3 (150-4 60) Not Available [facility] (Centralized Electronic Ordering - All Locations) Patient Can Go To The Location Of Their Choice, [id number] 09/25/2021 15:09:46 09/01/20 21 09/01/2021 COMPL ETE CBC WITH DIFF RDW-SD 47.5 fL (<47.0 ) high Not Available [facility] (Centralized Electronic Ordering - All Locations) Patient Can Go To The Location Of Their Choice, [facility] 09/25/2021 15:09:46 09/01/20 21 09/01/2021 COMPL ETE CBC WITH DIFF MPV 11.2 fL (9.4-1 2.4) Not Available [facility] (Centralized Electronic Ordering - All Locations) Patient Can Go To The Location Of Their Choice, [facility] 09/25/2021 15:09:46 09/01/20 21 09/01/2021 COMPL ETE CBC WITH DIFF automated NRBC 0.0 #/100 _WBC' s Not Available [facility] (Centralized Electronic Ordering - All Locations) Patient Can Go To The Location Of Their Choice, [facility] 09/25/2021 15:09:46 09/01/2009/01/2021 COMPL ETE CBC WITH DIFF abs. NRBC 0.0 K/mm3 Not Available [facility] (Centralized Electronic Ordering - All Locations) Patient Can Go To The Location Of Their Choice, [facility] 09/25/2021 15:09:46 09/01/2009/01/2021 COMPL ETE CBC WITH DIFF neut # 3.3 K/mm3 (1.3-7 .0) Not Available [facility] (Centralized Electronic Ordering - All Locations) Patient Can Go To The Location Of Their Choice, [facility] 09/25/2021 15:09:46 09/01/20 21 09/01/2021 COMPL ETE CBC WITH DIFF lymph # 1.6 K/mm3 (0.8-3 .1) Not Available [facility] (Centralized Electronic Ordering - All Locations) Patient Can Go To The Location Of Their Choice, [facility] 09/25/2021 15:09:46 09/01/20 21 09/01/2021 COMPL ETE CBC WITH DIFF mono# 0.6 K/mm3 (0.4-0 .9) Not Available [facility] (Centralized Electronic Ordering - All Locations) Patient Can Go To The Location Of Their Choice, [facility] 09/25/2021 15:09:46 09/01/20 21 09/01/2021 COMPL ETE CBC WITH DIFF eo # 0.1 K/mm3 (0.0-0 .4) Not Available [facility] (Centralized Electronic Ordering - All Locations) Patient Can Go To The Location Of Their Choice, [id number] 09/25/2021 15:09:46 09/01/20 21 09/01/2021 COMPL ETE CBC WITH DIFF baso # 0.0 K/mm3 (0.0-0 .1) Not Available [facility] (Centralized Electronic Ordering - All Locations) Patient Can Go To The Location Of Their Choice, [id number] 09/25/2021 15:09:46 09/01/20 21 09/01/2021 COMPL ETE CBC WITH DIFF abs. imm gran 0.0 K/mm3 Not Available [facility] (Central[facility] Ordering - All Locations) Patient Can Go To The Location Of Their Choice, [id number] 09/25/2021 15:09:46 09/01/2009/01/2021 COMPL ETE CBC WITH DIFF neut 58.7 % (44-76 ) Not Available [facility] (Centralized Electronic Ordering - All Locations) Patient Can Go To The Location Of Their Choice, [facility] 09/25/2021 15:09:46 09/01/20 21 09/01/2021 COMPL ETE CBC WITH DIFF lymph 29.5 % (15-43 ) Not Available [facility] (Centralized Electronic Ordering - All Locations) Patient Can Go To The Location Of Their Choice, [facility] 09/25/2021 15:09:46 09/01/2009/01/2021 COMPL ETE CBC WITH DIFF monocyte 9.9 % (4.5-1 0.5) Not Available [facility] (Centralized Electronic Ordering - All Locations) Patient Can Go To The Location Of Their Choice, [id number] 09/25/2021 15:09:46 09/01/20 21 09/01/2021 COMPL ETE CBC WITH DIFF eo 1.3 % (0-6) Not Available [facility] (Centralized Electronic Ordering - All Locations) Patient Can Go To The Location Of Their Choice, [id number] 09/25/2021 15:09:46 09/01/20 21 09/01/2021 COMPL ETE CBC WITH DIFF baso 0.4 % (0-2) Not Available [facility] (Centralized Electronic Ordering - All Locations) Patient Can Go To The Location Of Their Choice, [id number] 09/25/2021 15:09:46 09/01/2009/01/2021 COMPL ETE CBC WITH DIFF imm gran 0.2 % Not Available [facility] (Centralized Electronic Ordering - All Locations) Patient Can Go To The Location Of Their Choice, [id number] 09/25/2021 15:09:46 09/01/20 21 09/01/2021 URINE CULTU RE specimen description URINE Not Available [facility] - [facility] Locations) Patient Can Go To The Location Of Their Choice, [id number] 09/25/2021 15:09:58 09/01/2009/01/2021 URINE CULTU RE special requests NONE Not Available [facility] ([facility] Ordering - All Locations) Patient Can Go To The Location Of Their Choice, [id number] 09/25/2021 15:09:58 09/01/2009/03/2021 URINE CULTU RE culture NO GROWTH Not Available [facility] (Centralized Electronic Ordering - All Locations) Patient Can Go To The Location Of Their Choice, [id number] 09/25/2021 15:09:58 09/01/2009/03/2021 URINE CULTU RE report status FINAL 2020 Not Available [facility] (Centralized Electronic Ordering - All Locations) Patient Can Go To The Location Of Their Choice, [id number] 09/25/2021 15:09:58 09/01/2009/01/2021 urina lysis , dipst ick Appearance clear Not Available [facility] [address] [place] [address], [phone], 09/01/2021 14:44:02 09/01/20 21 09/01/2021 urina lysis , dipst ick Color yellow Not Available [facility] [address] [place], [address], 09/01/2021 14:44:02 09/01/20 21 09/01/2021 urina lysis , dipst ick Glucose (ref: neg) Neg Not Available [facility] [address] [place], [address], 09/01/2021 14:44:02 09/01/20 21 09/01/2021 urina lysis , dipst ick Bilirubin (ref: neg) Neg Not Available [facility] [place], [address], 09/01/2021 14:44:02 09/01/20 21 09/01/2021 urina lysis , dipst ick Ketones (ref: neg) Neg Not Available [facility] [address] [place], [address], 09/01/2021 14:44:02 09/01/20 21 09/01/2021 urina lysis , dipst ick Specific [place] (ref: 1.003 - 1.035) 1.[address] [facility] [place] [address] [place], [address], 09/01/2021 14:44:02 09/01/20 21 09/01/2021 urina lysis , dipst ick Blood (ref: neg) 5-10 Faby/uL Not Available [facility] [place] [address] [place], [address], 09/01/2021 14:44:02 09/01/20 21 09/01/2021 urina lysis , dipst ick pH (ref: 5-7) 6.[address] [facility] [place] [address] [place], [address], 09/01/2021 14:44:02 09/01/20 21 09/01/2021 urina lysis , dipst ick Protein (ref: neg) ++ Not Available [facility] [place] [address] [place], [address], 09/01/2021 14:44:02 09/01/20 21 09/01/2021 urina lysis , dipst ick Urobilinogen (ref: 0.2) 0.2 Not Available [facility] [place] [address] [place], [phone], 09/01/2021 14:44:02 09/01/20 21 09/01/2021 urina lysis , dipst ick Nitrites (ref: neg) negati ve Not Available [facility] [address] [place], [address], 09/01/2021 14:44:02 09/01/20 21 09/01/2021 urina lysis , dipst ick Leukocytes (ref: neg) Neg Not Available [facility] [address] [place] [address], [phone], 09/01/2021 14:44:02 09/01/20 21 09/01/2021 urina lysis , dipst ick Location [facility] , [address] [place] [address], [id number] Not Available [facility] [address] [place] [address], [phone], 09/01/2021 14:44:02 09/01/20 21 09/01/2021 BMP + IONIZ ED CALCI UM, SERUM OR PLASM A glu 106 mg/dL 70-105 Not Available [place] [address] [place], [address], 09/01/2021 15:17:18 09/01/20 21 09/01/2021 BMP + IONIZ ED CALCI UM, SERUM OR PLASM A BUN 19 mg/dL 8-26 Not Available [facility] [address] [place], [address], 09/01/2021 15:17:18 09/01/20 21 09/01/2021 BMP + IONIZ ED CALCI UM, SERUM OR PLASM A crea 0.6 mg/dL 0.6-1. 3 Not Available [facility] [address] [place], [address], 09/01/2021 15:17:18 09/01/20 21 09/01/2021 BMP + IONIZ ED CALCI UM, SERUM OR PLASM A Na 141 mmol/ L 138-14 6 Not Available [address], [address], 09/01/2021 15:17:18 09/01/20 21 09/01/2021 BMP + IONIZ ED CALCI UM, SERUM OR PLASM A K 4.5 mmol/ L 3.5-4. 9 Not Available [address], [address], 09/01/2021 15:17:18 09/01/20 21 09/01/2021 BMP + IONIZ ED CALCI UM, SERUM OR PLASM A cL 104 mmol/ L 98-109 Not Available [address], [address], 09/01/2021 15:17:18 09/01/20 21 09/01/2021 BMP + IONIZ ED CALCI UM, SERUM OR PLASM A TCO2 24 mmol/ L 24-29 Not Available [address], [address], 09/01/2021 15:17:18 09/01/20 21 09/01/2021 BMP + IONIZ ED CALCI UM, SERUM OR PLASM A angap 18 mmol/ L 10-20 Not Available [address], [address], 09/01/2021 15:17:18 09/01/20 21 09/01/2021 BMP + IONIZ ED CALCI UM, SERUM OR PLASM A ica 1.16 mmol/ L 1.12-1 .32 Not Available [address], [address], 09/01/2021 15:17:18 09/01/20 21 09/01/2021 BMP + IONIZ ED CALCI UM, SERUM OR PLASM A HCT 41 %pcv 38-51 Not Available [facility] [address] [place], [address], 09/01/2021 15:17:18 09/01/20 21 09/01/2021 BMP + IONIZ ED CALCI UM, SERUM OR PLASM A Hb 13.9 g/dL 12-17 Not Available [facility] [address] [place], [address], 09/01/2021 15:17:18 09/03/20 21 XR, ribs, unila teral , w/ PA chest No observ ation record ed. [facility] ([facility] [employer] [address] [place], [address], 09/04/2021 17:48:33 09/05/20 21 US, retro perit oneum , limit ed No observ ation record ed. [email or web address] [facility] ([facility] [employer]) [address] [place], [address], 09/07/2021 08:36:22 Result Notes None recorded. Procedures Surgical History Date Name Laterality Status Provider Name and Address Organization Details Recorded Time 09/01/20 Venipuncture - completed GIOVANNA SOSA [address], [place], [address], [place] [facility] 09/01/2021 15:45:00 Imaging Results None recorded. Procedure Notes None recorded. Medical Equipment None Reported. Allergies No known drug allergies Medications Name Sig Start Date Stop Date Status Note LastModified by Organization Details LastModified Time quetiapine 25 mg tablet active Not Available Not Available Not Available bupropion HCl SR 150 mg tablet,12 hr sustained-re lease active Not Available Not Available Not Available acetaminophe n 325 mg tablet 650 mg PO administere d on scene. Time administere d: 1520 2020 active Not Available Not Available Not Avai lable lidocaine 4 % topical patch Apply 1 patch every 12 hours by topical route as directed for 10 days. 2020 active Not Available Not Available Not Avai lable trazodone 50 mg tablet active Not Available Not Available No t Available pravastatin 40 mg tablet TAKE 1 TABLET BY MOUTH EVERY DAY active Not Available Not Available No t Available metoprolol tartrate 100 mg tablet active Not Available Not Available No t Available metoprolol succinate ER 50 mg tablet,exten ded release 24 hr active Not Available Not Available Not Available lisinopril 20 mg tablet active Not Available Not Available Not Available metoprolol succinate ER 100 mg tablet,exten ded release 24 hr active Not Available Not Available Not Available tramadol 50 mg tablet TAKE 1 TABLET BY MOUTH EVERY 6 HOURS NEEDED FOR SEVERE PAIN active Not Available Not Available Not Available lorazepam 0.5 mg tablet TAKE 1 TABLET 3 TIMES A DAY NEEDED FOR ANXIETY active Not Available Not Available Not Available lisinopril 10 mg tablet 1 TABLET BY MOUTH DAILY,INSTR INCREASE TO 2 TABLETS OF 05/05/20 4 OF 05/11 active Not Available Not Available N ot Available lisinopril 30 mg tablet TAKE 1 TABLET BY MOUTH EVERY DAY active Not Available Not Available No t Available gabapentin 300 mg capsule active Not Available Not Available Not Available sertraline 25 mg tablet TAKE 1 TABLET BY MOUTH EVERY DAY active Not Available Not Available No t Available gabapentin 100 mg capsule active Not Available Not Available Not Available albuterol sulfate HFA 90 mcg/actuatio n aerosol inhaler active Not Available Not Available Not Available lisinopril 40 mg tablet active Not Available Not Available Not Available oxycodone 5 mg tablet active Not Available Not Available No t Available nitrofuranto in monohydrate/ macrocrystal s 100 mg capsule TAKE 1 CAPSULE BY MOUTH TWICE A DAY FOR 5 DAYS active Not Available Not Available No t Available Flovent HFA 110 mcg/actuatio n aerosol inhaler active Not Available Not Available Not Available Eliquis 5 mg tablet active Not Available Not Available Not Available Vitals Date Recorded Body temperature Heart rate Respiratory rate Oxygen saturation Oxygen saturation in Arterial blood by Pulse oximetry Heart rate Respiratory rate Oxygen saturation Oxygen saturation in Arterial blood by Pulse oximetry Body temperature Systolic And Diastolic Systolic And Diastolic Provider Name and Address Organization Details Last Updated DateTime 1 97.8 [degF] 52 /min 20 /min 94 % 94 % 52 /min 18 /min 94 % 94 % 97.8 [degF] 138/92 mm[Hg] 138/92 mm[Hg] Not Available [facility] 11:47:44 Date Recorded Body temperature Respiratory rate Heart rate Oxygen saturation Oxygen saturation in Arterial blood by Pulse oximetry Systolic And Diastolic Provider Name and Address Organization Details Last Updated DateTime 98 [degF] 16 /min 51 /min 96 % 96 % 134/80 mm[Hg] Not Available [facility] 14:32:31 Social History Question Answer Notes LastModified by Organization D etails LastModified Time Do You Have An Advance Directive? Yes [email or web address] Information not available 05/18/2021 What Is Your Code Status? DNR [email or web address] Information not available 05/18/2021 Sex: Unknown Functional Status None recorded. Mental Status None recorded. Family History Nothing Reported. Medical History Condition Response Coronary Artery Disease N Parkinson's Disease N COPD N Depression Y Hypothyroidism N A-fib Y CHF N Cancer N Dementia N Stroke Y Asthma N High Cholesterol Y Rheumatoid Arthritis N Pulmonary Embolism N Hypertension Y Osteoporosis N Kidney Disease N Gynecological HistoryNo gynecological history recorded. Obstetrics History GPAL:G 0 P 0 0 0 0 Past Encounters Encounter ID Performer Location Encounter Start Date Encounter Closed Date Diagnosis/Indication Diagnosis SNOMED-CT Code Diagnosis ICD10 Code Diagnosis Note [id number] DENISE TERRAZAS NP [facility] [address] [place] [address] 05/18/2021 11:36:23 05/18/2021 12:25:24 Low back strain 075163334 S39.012A [id number] GIOVANNA SOSA [facility] [address] [place] [address] 09/01/2021 14:14:59 09/01/2021 16:17:21 Right flank pain 789840491 R10.9 Thoracic back pain 48475 8004 M54.6 Increased frequency of urination 336631156 R35.0 History of hypertension 197898755 Z86.79 History of atrial fibrillation 052041636 Z86.79 Health Concerns Section Related Observation LastModified by Organization Isabellaai ls LastModified Time None Recorded Concern Status LastModified by Organization Details LastModified Time None Recorded Advance Directives Directive Y: Payers Insurance Date Sequence Insurance Name Policy Number Policy Rosa Covered Member ID Rosa Member ID Guarantor Name 05/16/2021 1 *SELF PAY* Pilar Hermosilloillard [id number] [place] 09/01/2021 1 [employer] - MEDICARE ADVANTAGE PLAN (MEDICARE REPLACEMENT HMO) [id number] Pilar Hermosilloillard [id number] Pilar Hermosilloillard 09/01/2021 1 [facility] (MEDICARE REPLACEMENT HMO) [id number] Pilar Hermosilloillard [id number] Pilar Hermosilloillard Notes Date Note Type Note Provider Name and Address Organization Details Recorded Time 05/18/2021 text/html This is a 80 yo female, new to , who calls with c/o left sided back pain. She is a poor historian. Her past medical history includes depression, high cholesterol, hypertension, stroke, atrial fibrillation, chronic pain, cognitive deficit status post CVA, dysphagia, insomnia and attention and concentration deficit. She currently resides in assisted living facility. She sees yesterday she developed left-sided back and hip pain. The patient however had called [facility] 2 days ago with the same complaints however she states it only started yesterday. She states it hurts all the time, stabbing pain 8/10 pain. She is unable to give any aggravating or relieving factors. She is unable to determine what she was doing when pain issues initially started. She denies any recent falls or injuries. She states she has been taking tramadol and Tylenol with no relief. She does admit that she has mild issue with constipation and her last bowel movement was approximately 4 days ago. She states she does take stool softeners regularly however she is unsure if she has taken any the past couple of days. She admits to normal appetite and normal p.o. fluid intake. She denies any actual abdominal pain, nausea, vomiting, diarrhea. She states the nurse at the [facility] recommended ER yesterday however patient refused. Patient also initially refused visit upon arrival, however then consented to visit shortly after. DENISE TERRAZAS NP [facility] [address] [place], [address], [place] [facility] 05/18/2021 12:22:56 09/01/2021 text/html 80 y/o F with PM H of HTN, HLD, Depression, CVA with left sided deficit, Atrial Fibrillation, Chronic Pain, Cognitive deficit s/p CVA, Dysphagia, Insomnia, Attention and concentration Deficit, known to but new to provider, is seeking further evaluation of right flank pain/right parathoracic back pain x 2 days. The patient reports that the pain is a 10/10. Patient has taken Tramadol 50 mg once daily for pain which has provided her with relief, but the patient returns after 1-2 hours. The patient reports chronic urinary frequency. Patient admits to some pain with a deep breath in intermittently. The patient also reports that she experienced a fall out of her car approximately 6 days ago where she fell on her right side, but had no pain in her chest or back until 2 days ago. Patient denies any chest pain, shortness of breath, fevers, chills, cough, nausea, vomiting, diarrhea, abdominal pain, leg swelling, dysuria, or hematuria. Also denies any head trauma or LOC. GIOVANNA SOSA [address] [place], [address], [place] [facility] 09/01/2021 16:08:18 OBGyn Episode No OBEpisode recorded.
== END 2025-04-30 12:57 | disposition home or self-care (01) ==
PROVIDERS: PCP Internal Medicine; Referring Provider Internal Medicine; Visit Provider Internal Medicine
DX: I69.398 Other sequelae of cerebral infarction (principal); R52 Pain, unspecified
CPT/HCPCS: 99204

== ENCOUNTER → 2025-04-30 12:23 | Outpatient (BNVA) | payer MEDICARE, SELFPAY | PROVIDERS: PCP Internal Medicine; Referring Provider Internal Medicine; Visit Provider Internal Medicine | DX: M51.16 Intervertebral disc disorders with radiculopathy, lumbar region (principal); M25.552 Pain in left hip; I69.398 Other sequelae of cerebral infarction; G89.29 Other chronic pain | CPT/HCPCS: 99202 ==

== ENCOUNTER 2025-06-04 13:18 | Outpatient (AMB) | payer MEDICARE, SELFPAY ==
--- NOTE | 2025-06-04 13:19 | A.OFFVIS_ITS ---
Intake Visit Reasons: Follow Up Allergies No Known Allergies (No Known Allergies*) Allergy (Verified 04/30/25 12:32) HPI HPI Follow Up: Details: History of Present Illness The patient is an 84-year-old female presenting with chronic pain management concerns. She was previously receiving oxycodone at night, which has been discontinued, leading to increased pain during the night. Currently, she receives oxycodone only at 6 AM, and gabapentin is administered at 100 mg in the morning, 100 mg at noon, and 200 mg at 6 PM. The patient reports that the pain is managed during the day but worsens at night due to the absence of nighttime oxycodone. She has not experienced any side effects from gabapentin, and the increase in dosage did not result in additional side effects or relief. Previously, when the patient received oxycodone at night, her pain was better controlled. She denies any additional sedation related side effects since the addition of gabapentin. Pain Description - Pain worsens at night due to absence of nighttime oxycodone - Pain managed during the day with current medication regimen - No side effects from gabapentin Pain Management - Affect: Pain impacts nighttime comfort and sleep - Analgesia: Current regimen includes oxycodone at 6 AM and gabapentin throughout the day - Adverse Effects: No side effects reported from gabapentin - Activities of Daily Living: Pain is managed during the day but worsens at night - Aberrant Drug Related Behaviors: None reported [facility] Medical History (Updated 05/04/25 @ 12:04 by Alan Lamar MD) Osteoporosis Major depression, recurrent Hypertension Hyperlipidemia T12 compression fracture COPD (chronic obstructive pulmonary disease) Bilateral carotid artery stenosis Atrial fibrillation Telehealth Telehealth Telehealth Platform: Telephone Location of provider rendering services: practice address Location of patient: address on file Patient Identification confirmed using: Name, : Yes Telehealth method: voice only Patient verbally consented to treatment: Yes Patient verbally consented to billing insurance company: Yes Patient informed of any privacy concerns related to visit: Yes Minutes spent on Phone/Video with Pt.: 12 Assessment & Plan Assessment & Plan (1) Pain after cerebrovascular accident (CVA): Code(s): I69.398 - Other sequelae of cerebral infarction; R52 - Pain, unspecified Category: Medical Plan Plan - Discuss with Dr. Bates regarding the possibility of reinstating nighttime oxycodone to manage nocturnal pain. - Monitor for any side effects or signs of sedation from current medication regimen. She denies any new sedation or drowsiness related side effects. Denies difficulty with arousal. - Consider increasing gabapentin dosage if pain management remains inadequate. - Ensure availability of Narcan spray as a precautionary measure. Patient was informed and verbally consented to the use of an ambient scribe for clinic note documentation during this visit. Discussion Notes I discussed with the patient the current pain management regimen and the concerns regarding the discontinuation of nighttime oxycodone. We talked about the importance of monitoring for any side effects or signs of sedation, and the potential need to adjust the gabapentin dosage if pain management remains inadequate. I advised the patient to communicate with Dr. Bates about the possibility of reinstating nighttime oxycodone given the lack of adverse effects and to ensure the availability of Narcan spray as a precautionary measure. Patient Instructions - Contact Dr. Bates to discuss the possibility of reinstating nighttime oxycodone. - Monitor for any side effects or signs of sedation from current medications. - Ensure Narcan spray is available as a precaution. Coding Level of Care Code Tele Est Pt Level 4 (53500) Diagnoses Pain after cerebrovascular accident (CVA) I69.398; R52
--- OUTSIDE RECORDS SUMMARY | 2025-06-04 13:20 | XMS_ITS | Encounter Summary ---
Author Organization [facility] Address [address] [place] [address] Phone Care Team Providers Care Shopping Centre Manager Name Role Phone Razia Maharaj MD Primary Care Provider [phone] Reason for Visit * Reason Comments Med Refill Encounter Details Date Type Department Care Team (Late st Contact Info) Description 05/13/2023 Refill [facility] [address] [place] [id number] Vilma Mansfield MD Social History Tobacco Use [...] on filedocumented in this encounter Care Teams Shopping Centre Manager Relationship Specialty Start Date End Date Razia Maharaj MD [address] [place] [address] PCP - General Physical Medicine and Rehabilitation 04/03/21 documented as of this encounter
--- OUTSIDE RECORDS SUMMARY | 2025-06-04 13:20 | XMS_ITS | Patient Health Record ---
Author Organization [facility] Address [address] [place] [address] Care Team Providers Care Small Engine Mechanic Name Role Phone Olivia Chase MD, May Primary Care Provider Taras Donohue Unavailable [phone] Allergies No Known Allergies Reason For Referral [...] W/U Status Risk Notes Problem Unsteady gait (29047117) Unsteady gait (R26.81) Active confirmed Problem Left foot drop (713741032818914) Left foot drop (M21.372) Active confirmed Problem Cerebrovascular accident (060059023) Cerebrovascular accident (CVA), unspecified mechanism (I63.9) Active confirmed Plan Of Treatment No Information Insurance Providers Payer Name Payer Address Payer Phone Subscriber Number Group Number Insured Name Patient Relationship to Insured Coverage Start Date Coverage End Date [employer] [place] Medicare Advantage One [facility] [address] [place] [address] [id number] Pilar Chandler Self - patient is the insured Medical (General) History Medical History History ICD Code Anxiety Back,Hip,and Knee pain Broken bones Cataracts High blood pressure Osteoporosis Paralysis Stroke Measles Chicken pox Surgical History Surgery Date(Month/Year) hysterectomy 1966 carpal tunnel surgery 1984 bunionectomy 1974
--- OUTSIDE RECORDS SUMMARY | 2025-06-04 13:20 | XMS_ITS | Clinical Summary ---
Author Organization [facility] Address [address] [place] [address] Phone Care Team Providers Care Medical Oncology Physician Name Role Phone Preet Rivera MD Primary Care Provider [phone] Allergies No known active allergies Medications lisinopriL [...] Date Site/Laterality Comments OTHER SURGICAL HISTORY PROCEDURE: [place] ESOPHAGOSCOPY DILATE ESOPHAGUS BALLOON 30 MM Medical History Medical History Date Comments Essential hypertension DX:Essent ial hypertension Hyperlipidemia DX:Hyperlipidemi a Stroke (CMS/HCC V24, CMS/HCC V28) DX:Stroke (HCC) Afib (CMS/HCC V24, CMS/HCC V28) DX:Afib (HCC) Depressive disorder DX:Depressiv e disorder DVT (deep venous thrombosis) (CMS/HCC V24, CMS/HCC V28) DX:DVT (deep venous thrombos is) ([facility]) Dysphagia DX:Dysphagia Status post fall DX:Status post fall Hypokalemia DX:Hypokalemia Aspiration pneumonia (CMS/HC C V24, CMS/[facility] V28) DX:Aspiration pneumonia ([facility] ) Social History Tobacco Use Types Packs/Day [...] nts (1 - 1-dose 75+ series) 2017 Falls Risk Assessment 09/23/2022 Osteoporosis Screening (Bone Density Screening) 09/23/2022 Social Influencers of Health Screening 09/23/2022 COVID-19 Vaccine ( - 2023-2 5 season) 2024 Depression Screening 10/21/2024 Influenza Vaccine (#1) 2025 HIB Vaccines Aged [...] patient's age to complete this topic Insurance [place] [id number] Advance Directives Documents on File Type Date Recorded Patient Keno Clerk Expl anation Health Care Decision (hx) 08/14/2022 [...] (hx) 10/05/2020 AD MONTEJO DIRECTIVE Care Teams Medical Oncology Physician Relationship Specialty Start Date End Date Preet Rivera MD [address] [place] [id number] PCP - General 03/19/14
== END 2025-06-04 13:19 | disposition home or self-care (01) ==
LOC: HO.PMC 13:18
PROVIDERS: PCP Internal Medicine; Visit Provider Internal Medicine
DX: I69.398 Other sequelae of cerebral infarction (principal); R52 Pain, unspecified
CPT/HCPCS: 99214